=== PATIENT | female | born 1985 | race Caucasian/White ===

== ENCOUNTER 2017-01-30 21:38 | Emergency (ER) | payer OTHER ==
[~2017-01-30 21:38] MED LIST: MOTRIN800 MG PO; PRENATAL1 EACH PO
[2017-01-30] MEDS ORDERED: SYNTHROID50 MC1 PO (23:50)
[2017-01-30] MEDS ORDERED: PAXIL20 M1 PO (23:51)
[2017-01-31] MEDS ORDERED: NORCO 5-325 TA1 EACH PO (00:29)
[2017-01-31] MEDS ORDERED: BACTRIM DS TAB1 EAC2 PO (00:29)
== END 2017-01-31 00:40 ==
LOC: EDMED 21:38
PROC: 0H9AXZZ Drainage of Inguinal Skin, External Approach (ICD-10-PCS; principal; 2017-01-31)
DX: N76.4 Abscess of vulva (principal); I10 Essential (primary) hypertension; F32.9 Major depressive disorder, single episode, unspecified; F17.200 Nicotine dependence, unspecified, uncomplicated